=== PATIENT | male | born 1955 | race Caucasian/White ===

== ENCOUNTER 2016-08-27 19:34 | Emergency (ER) | payer MEDICARE ==
[~2016-08-27] VITALS: Ht 167.6 cm; Wt 62.7 kg
[~2016-08-27 19:34] MED LIST: LIPITOR 80MG80 MG PO; NOVLOG; NOVLOG SQ; PERCOCET 325 MG1 TA2 PO; VASOTEC 10M10 MG/TAB PO; ZOFRAN 4MG T4 MG/TAB PO; [UNRECOGNIZED DRUG - OTHER]
[2016-08-27 19:36] VITALS: BP 163/74; TEMP 98.3
[2016-08-27 20:24] LABS: BASO # 0.1 (0.0-0.2); BASO % 0.7 % (0.0-2.0); EOS % 0.3 % (0-4.0); GRAN # 9.1 (1.4-6.5); GRAN % 75.7 % (42.2-75.2); HEMATOCRIT 37.5 % (42.0-52.0); LYMPH % 16.3 % (20.0-51.0); MEAN CELL VOLUME 87 fl (80.0-100.0); MEAN CORPUSCULAR HEMOGLOBIN 30 pg (27.0-31.0); MEAN CORPUSCULAR HGB CONC 35 g/dl (33.0-37.0); MEAN PLATELET VOLUME 9.7 fl (7.4-10.4); MONO # 0.7 (0.1-0.6); MONO % 6.2 % (1.7-9.3); PLATELET COUNT 256 K/mm3 (130-400); RED BLOOD COUNT 4.29 M/mm3 (4.20-5.60); REDCELL DISTRIBUTION WIDTH-CV 12.6 % (11.5-14.5)
[2016-08-27 20:34] LABS: ALANINE AMINOTRANSFERASE 21 U/L (21-72); ALBUMIN 3.6 gm/dL (3.5-5.0); ALKALINE PHOSPHATASE 89 U/L (50-136); ANION GAP 12 mmol/L (7-16); BILIRUBIN,TOTAL 0.6 mg/dL (0.0-1.0); BLOOD UREA NITROGEN 15 mg/dL (9-20); CALCIUM 8.7 mg/dL (8.4-10.2); CARBON DIOXIDE 22 mmol/L (22-30); CHLORIDE 96 mmol/L (98-107); CREATININE, serum 0.76 mg/dL (0.66-1.25); SODIUM 131 mmol/L (137-145); TOTAL PROTEIN 6.5 gm/dL (6.4-8.2)
[2016-08-27 20:36] LABS: GLUCOSE 508 mg/dL (74-106)
[2016-08-27 20:46] LABS: PH 5 (5-8); URINE APPEARANCE Clear; URINE BILIRUBIN Negative (NEGATIVE); URINE BLOOD 1+ (NEGATIVE); URINE COLOR Yellow; URINE GLUCOSE 3+ (NEGATIVE); URINE KETONE Negative (NEGATIVE); URINE UROBILINOGEN Negative (NEGATIVE)
[2016-08-27 21:19] LABS: SQUAMOUS EPITHELIAL 0-2 /hpf; URINE RBC 0-2 /hpf; URINE WBC 0-2 /hpf
[2016-08-27] MEDS ORDERED: NORCO 325 MG-51 TAB PO (21:26)
[2016-08-27 22:17] VITALS: PULSE 82
== END 2016-08-27 22:18 | disposition home or self-care (01) ==
LOC: COL.ER 19:34
PROVIDERS: Family Medicine
DX: S39.012A Strain of muscle, fascia and tendon of lower back, initial encounter (principal); S30.0XXA Contusion of lower back and pelvis, initial encounter; W17.89XA Other fall from one level to another, initial encounter; E11.65 Type 2 diabetes mellitus with hyperglycemia; R31.9 Hematuria, unspecified
CPT/HCPCS: J1200; J1815; J2270; J7030

== ENCOUNTER 2016-10-27 15:01 | Emergency (ER) | payer MEDICARE ==
[~2016-10-27] VITALS: Ht 167.6 cm; Wt 59.1 kg
[~2016-10-27 15:01] MED LIST changes: +NORCO 325 MG-51 TAB PO
[2016-10-27 15:04] VITALS: BP 168/74; PULSE 85; TEMP 98.6
[2016-10-27] MEDS ORDERED: ISORDIL 10MG10 MG PO (15:46)
[2016-10-27] MEDS ORDERED: LIPITOR 80MG80 MG PO (15:46)
[2016-10-27] MEDS ORDERED: NEURONTIN300 MG/CAP PO (15:46)
[2016-10-27] MEDS ORDERED: XANAX .25M0.25 MG/TA PO (15:46)
[2016-10-27] MEDS ORDERED: NORVASC 5MG5 MG/TAB PO (15:47)
[2016-10-27] MEDS ORDERED: PLAVIX 75MG TAB75 MG PO (15:47)
[2016-10-27] MEDS ORDERED: VASOTEC 10M10 MG/TAB PO (15:47)
[2016-10-27] MEDS ORDERED: PROAIR HFA0.09 MG/AC IH (15:47)
[2016-10-27] MEDS ORDERED: LEVEMIR FLEX100 U/ML SQ (15:48)
[2016-10-27] MEDS ORDERED: CELEXA 20MG20 MG/TAB PO (15:48)
== END 2016-10-27 15:56 | disposition home or self-care (01) ==
LOC: COL.ER 15:01
DX: G89.29 Other chronic pain (principal); M79.606 Pain in leg, unspecified; M79.602 Pain in left arm; R29.898 Other symptoms and signs involving the musculoskeletal system; I25.10 Atherosclerotic heart disease of native coronary artery without angina pectoris; F17.200 Nicotine dependence, unspecified, uncomplicated; E11.9 Type 2 diabetes mellitus without complications; Z79.4 Long term (current) use of insulin; Z86.73 Personal history of transient ischemic attack (TIA), and cerebral infarction without residual deficits; I73.9 Peripheral vascular disease, unspecified; G62.9 Polyneuropathy, unspecified; F43.10 Post-traumatic stress disorder, unspecified